=== PATIENT | female | born 1990 | race Native Hawaiian/Other Pacific Islander ===

== ENCOUNTER 2019-04-26 09:38 | Emergency (ER) | payer OTHER ==
[~2019-04-26] VITALS: Ht 160 cm; Wt 52.6 kg
[2019-04-26 10:29] LABS: PLATELET COUNT 329 K/uL (152-353)
[2019-04-26 14:00] VITALS: BP 124/88; TEMP 97
== END 2019-04-26 14:30 | disposition home or self-care (01) ==
LOC: ED 09:38
PROVIDERS: Family Medicine
DX: N39.0 Urinary tract infection, site not specified (principal); E87.1 Hypo-osmolality and hyponatremia; J06.9 Acute upper respiratory infection, unspecified
CPT/HCPCS: 36415; 80053; 81000; 85027; 96360; 96365; 99284; J0696; Q9963

== ENCOUNTER 2019-12-24 23:10 | Emergency (ER) | payer OTHER ==
[~2019-12-24] VITALS: Ht 160 cm; Wt 52.2 kg
[2019-12-25 00:13] LABS: PLATELET COUNT 263 K/uL (152-353)
[2019-12-25 00:21] LABS: POTASSIUM 3.6 mmol/L (3.6-5.2)
[2019-12-25 01:35] VITALS: BP 123/88; TEMP 98.1
== END 2019-12-25 01:44 | disposition home or self-care (01) ==
LOC: ED 23:10
PROVIDERS: Emergency Medicine
DX: R19.7 Diarrhea, unspecified (principal)
CPT/HCPCS: 36415; 80053; 81000; 81025; 85027; 86318; 96374; 99284; J1885

== ENCOUNTER 2020-05-01 19:59 | Emergency (ER) | payer OTHER ==
[~2020-05-01] VITALS: Ht 160 cm; Wt 54.0 kg
[2020-05-01 21:01] VITALS: BP 128/76; TEMP 98
== END 2020-05-01 21:08 | disposition home or self-care (01) ==
LOC: ED 19:59
DX: S16.1XXA Strain of muscle, fascia and tendon at neck level, initial encounter (principal); S29.012A Strain of muscle and tendon of back wall of thorax, initial encounter; V47.1XXA Car passenger injured in collision with fixed or stationary object in nontraffic accident, initial encounter; Y92.410 Unspecified street and highway as the place of occurrence of the external cause
CPT/HCPCS: 99282

== ENCOUNTER 2021-02-05 03:14 | Emergency (ER) | payer OTHER ==
[~2021-02-05] VITALS: Ht 162.6 cm; Wt 60.8 kg
[2021-02-05 04:33] LABS: PLATELET COUNT 439 K/uL (152-353)
[2021-02-05 04:40] LABS: POTASSIUM 3.3 mmol/L (3.6-5.2)
[2021-02-05 06:55] VITALS: BP 130/84; TEMP 97.6
== END 2021-02-05 06:55 | disposition home or self-care (01) ==
LOC: ED 03:14
PROVIDERS: Emergency Medicine Emergency Medical Services
DX: O21.0 Mild hyperemesis gravidarum (principal); Z3A.24 24 weeks gestation of pregnancy
CPT/HCPCS: 36415; 80053; 82150; 83690; 83735; 85027; 96360; 96361; 96374; 99284; J2405